=== PATIENT | female | born 1940 | race African-American/Black ===

== ENCOUNTER → 2017-01-22 | Outpatient (CLI) | payer OTHER | END | disposition home or self-care (01) | DX: M17.11 Unilateral primary osteoarthritis, right knee (principal); R26.2 Difficulty in walking, not elsewhere classified; M62.81 Muscle weakness (generalized); M25.661 Stiffness of right knee, not elsewhere classified | CPT/HCPCS: 97110 GP; 97150 GO; 97161 GP; 97165 GO ==

== ENCOUNTER 2017-02-19 08:51 | Inpatient (IN) | payer OTHER ==
[~2017-02-19] VITALS: Ht 162.6 cm; Wt 137.6 kg
[~2017-02-19 08:51] MED LIST: CELEBREX200 MG PO; CINNAMON500 MG PO; DAILY VALUE1 EACH PO; GLUCOSAMINE-CH1 EA47 PO; HYDROCHLOROTHIA25 MG PO; LOTRISONE15 GM TP; MIRALAX17 GM PO; OMEPRAZOLE40 M1 PO; SYNTHROID75 MCG PO; ZESTRIL2.5 MG PO
[2017-02-19 12:16] VITALS: BP 122/60
[2017-02-19 17:46] LABS: HEMATOCRIT 41.7 % (36.0-46.0); MCH 26.7 PG (29.0-34.0); MCHC 31.7 G/DL (30.0-36.0); MCV 84.4 FL (83-99); MEAN PLAT.VOLUME 9.8 uM^3 (9.5-12.4); PLATELET COUNT 181 K/uL (156-360); RBC DIS.WIDTH-SD 45.6 % (39-53); RED BLOOD COUNT 4.94 M/uL (3.80-5.20); WHITE BLOOD COUNT 6.7 K/uL (4.1-10.2)
[2017-02-19 20:04] VITALS: BP 143/75
[2017-02-19 23:44] VITALS: BP 131/62
[2017-02-20 04:44] VITALS: BP 156/82
[2017-02-20 05:48] LABS: HEMATOCRIT 37.7 % (36.0-46.0); MCV 84.5 FL (83-99)
[2017-02-20 06:07] LABS: ANION GAP 8 MEQ/L (2-14); CHLORIDE 108 MEQ/L (99-109); GFR ESTIMATE (CALCULATED) > 59 mL/min/; GLUCOSE 139 mg/dL (70-99); POTASSIUM 3.7 MEQ/L (3.7-5.4); SAMPLE HEMOLYSIS CHECK 0; SAMPLE ICTERIC CHECK 0; SAMPLE LIPEMIA CHECK 0; SODIUM 142 MEQ/L (136-147); UREA NITROGEN (BUN) 16 mg/dL (9-23)
[2017-02-20 08:30] VITALS: BP 129/65
[2017-02-20 11:11] VITALS: BP 129/71
[2017-02-20 16:16] VITALS: BP 106/60
[2017-02-20 19:49] VITALS: BP 135/64
[2017-02-20 23:53] VITALS: BP 162/74
[2017-02-21 05:32] LABS: ANION GAP 8 MEQ/L (2-14); CHLORIDE 104 MEQ/L (99-109); GFR ESTIMATE (CALCULATED) > 59 mL/min/; GLUCOSE 117 mg/dL (70-99); POTASSIUM 3.8 MEQ/L (3.7-5.4); SAMPLE HEMOLYSIS CHECK 0; SAMPLE ICTERIC CHECK 0; SAMPLE LIPEMIA CHECK 0; SODIUM 138 MEQ/L (136-147); UREA NITROGEN (BUN) 13 mg/dL (9-23)
[2017-02-21 05:45] LABS: HEMATOCRIT 35.4 % (36.0-46.0); MCV 83.1 FL (83-99)
[2017-02-21 08:08] VITALS: BP 171/75
[2017-02-21] MEDS ORDERED: LOVENOX40 MG/0.4 SC (08:47)
[2017-02-21] MEDS ORDERED: ENDOCET 5-3251 EACH PO (08:47)
[2017-02-21 16:30] VITALS: BP 154/75
[2017-02-21 19:51] VITALS: BP 106/52
[2017-02-22 00:03] VITALS: BP 148/78
[2017-02-22 08:08] VITALS: BP 114/57
[2017-02-22 15:30] VITALS: BP 138/70
[2017-02-23 00:01] VITALS: BP 122/60
[2017-02-23 08:30] VITALS: BP 117/55
== END 2017-02-23 13:18 | DRG 470 ==
LOC: 2SOUTH → 3EAST 10:54 → 2SOUTH 15:25 → 3EAST 19:07
PROVIDERS: Orthopaedic Surgery; Physician Assistant
PROC: 0SRC0J9 Replacement of Right Knee Joint with Synthetic Substitute, Cemented, Open Approach (ICD-10-PCS; principal; 2017-02-19)
DX: M17.11 Unilateral primary osteoarthritis, right knee (principal); E66.01 Morbid (severe) obesity due to excess calories; K21.9 Gastro-esophageal reflux disease without esophagitis; E78.5 Hyperlipidemia, unspecified; E03.9 Hypothyroidism, unspecified; I10 Essential (primary) hypertension; I83.90 Asymptomatic varicose veins of unspecified lower extremity; Z68.42 Body mass index [BMI] 45.0-49.9, adult; Z87.891 Personal history of nicotine dependence
CPT/HCPCS: 71010; 73560; 80048; 85014; 85018; 85027; 97530 GP; J0131; J0690; J1170; J1650; J2250; J2405; J7050

== ENCOUNTER → 2017-08-13 | Outpatient (CLI) | payer OTHER ==
[~2017-08-13] VITALS: Ht 160 cm; Wt 134.7 kg
[~2017-08-13] MED LIST changes: +ENDOCET 5-3251 EACH PO; +KLONOPIN1 MG PO; +LOVENOX40 MG/0.4 SC; +NEURONTIN300 MG PO
== END | disposition home or self-care (01) ==
LOC: AMB 10:13
PROC: 0DJD8ZZ Inspection of Lower Intestinal Tract, Via Natural or Artificial Opening Endoscopic (ICD-10-PCS; principal; 2017-08-13)
DX: Z12.11 Encounter for screening for malignant neoplasm of colon (principal); K57.30 Diverticulosis of large intestine without perforation or abscess without bleeding; K64.8 Other hemorrhoids; I10 Essential (primary) hypertension; E03.9 Hypothyroidism, unspecified; R73.03 Prediabetes; Z96.653 Presence of artificial knee joint, bilateral; Z88.5 Allergy status to narcotic agent; Z88.6 Allergy status to analgesic agent